=== PATIENT | male | born 1970 | race Caucasian/White ===

== ENCOUNTER 2020-11-22 12:13 | Emergency (ER) | payer MEDICAID, SELFPAY ==
[~2020-11-22] VITALS: Ht 177.8 cm; Wt 102.1 kg
[2020-11-22 12:21] VITALS: BP_SYST 157
--- NOTE | 2020-11-22 12:31 | NUR ---
Pt came to ER stating he has shortness of breath since last night. Pt currently appears calm and comfortable, resting in room, no distress noted
--- NOTE | 2020-11-22 12:31 | NUR ---
Patient to ER bed 5 to gown for evaluation. Side rails up.
--- NOTE | 2020-11-22 12:32 | NUR ---
ER at bedside examining patient.
[2020-11-22 12:50] LABS: CALCIUM 8.5 mg/dL (8.4-11.0); POTASSIUM 3.8 mmol/L (3.5-5.1)
[2020-11-22 12:51] LABS: CREATININE 0.98 mg/dL (0.55-1.30)
[2020-11-22 12:52] LABS: BASOPHILS % (AUTO) 0.8 % (0.0-2.0); EOSINOPHILS # (AUTO) 0.4 K/uL (0.0-0.4); EOSINOPHILS % (AUTO) 7.6 % (0.0-4.0); HEMATOCRIT 45.7 % (36-54); HEMOGLOBIN 15.8 g/dL (14.0-18.0); LYMPHOCYTES # (AUTO) 2.4 K/uL (1.0-5.5); LYMPHOCYTES % (AUTO) 45.8 % (20.5-51.5); MEAN CORPUSCULAR HEMOGLOBIN 34 pg (27-31); MEAN CORPUSCULAR HGB CONC 35 % (32-36); MEAN CORPUSCULAR VOLUME 98 fL (79.0-98.0); MONOCYTES # (AUTO) 0.5 K/uL (0.0-1.0); MONOCYTES % (AUTO) 10.3 % (1.7-9.3); NEUTROPHILS # (AUTO) 1.9 K/uL (1.8-7.7); NEUTROPHILS % (AUTO) 35.5 % (40.0-70.0); PLATELET COUNT (AUTO) 204 K/uL (130-430); RED BLOOD CELL COUNT(AUTO) 4.69 MIL/uL (4.2-6.2); RED CELL DISTRIBUTION WIDTH 13.1 % (9.0-15.0); WHITE BLOOD COUNT (AUTO) 5.2 K/uL (4.8-10.8)
[2020-11-22 12:56] LABS: ALBUMIN 3.9 g/dL (3.4-4.8); TOTAL BILIRUBIN 0.7 mg/dL (0.0-1.0)
[2020-11-22] MEDS ORDERED: PSEU30TA36 PO (13:07)
[2020-11-22] MEDS ORDERED: IBUP-1971 PO (13:07)
[2020-11-22 13:08] LABS: C-REACTIVE PROTEIN QUANT 0.6 mg/dL (0-0.5)
[2020-11-22 13:27] VITALS: BP_SYST 157
--- NOTE | 2020-11-22 13:28 | NUR ---
Patient given written and verbal discharge instructions and verbalizes understanding. ER MD discussed with patient the results and treatment provided. Patient in stable condition. ID arm band removed. Rx of Motrin and Sudafed given. Patient educated on pain management and to follow up with PMD. Pain Scale 0/10. Opportunity for questions provided and answered. Medication side effect fact sheet provided.
== END 2020-11-22 13:28 | disposition home or self-care (01) ==
LOC: SED 12:13
DX: J40 Bronchitis, not specified as acute or chronic (principal); Z79.899 Other long term (current) drug therapy; Z20.822 Contact with and (suspected) exposure to COVID-19
CPT/HCPCS: 36415; 71045; 80053; 83605; 83880; 84484; 85025; 86140; 99284

== ENCOUNTER 2021-10-10 21:06 | Emergency (ER) | payer MEDICAID ==
[~2021-10-10] VITALS: Ht 172.7 cm; Wt 95.3 kg
[~2021-10-10 21:06] MED LIST: IBUP-1971 PO; PSEU30TA36 PO
[2021-10-10 21:42] VITALS: BP_SYST 128
== END 2021-10-10 21:47 | disposition left against medical advice (07) ==
LOC: SED 21:06
DX: R06.02 Shortness of breath (principal); Z53.21 Procedure and treatment not carried out due to patient leaving prior to being seen by health care provider

== ENCOUNTER 2022-06-28 12:15 | Emergency (ER) | payer MEDICAID ==
[~2022-06-28] VITALS: Ht 177.8 cm; Wt 108.9 kg
[2022-06-28 12:23] VITALS: BP_SYST 136
--- NOTE | 2022-06-28 12:25 | NUR ---
Patient triaged and placed in waiting room. VSS and patient appears in no acute distress at this time. Accompanied by SELF, awaiting available bed, and MD notified of need for MSE.
--- NOTE | 2022-06-28 12:50 | NUR ---
ER DR. MATAMOROS EXAMINING PT IN TRIAGE
[2022-06-28 13:08] LABS: BASOPHILS # (AUTO) 0.1 K/uL (0.0-0.2); EOSINOPHILS # (AUTO) 0.4 K/uL (0.0-0.4); EOSINOPHILS % (AUTO) 5.8 % (0.0-4.0); HEMOGLOBIN 14.9 g/dL (14.0-18.0); LYMPHOCYTES # (AUTO) 2.1 K/uL (1.0-5.5); LYMPHOCYTES % (AUTO) 31.8 % (20.5-51.5); MEAN CORPUSCULAR HEMOGLOBIN 34 pg (27-31); MEAN CORPUSCULAR HGB CONC 35 % (32-36); MEAN CORPUSCULAR VOLUME 96 fL (79.0-98.0); MONOCYTES # (AUTO) 0.6 K/uL (0.0-1.0); MONOCYTES % (AUTO) 9.4 % (1.7-9.3); NEUTROPHILS # (AUTO) 3.4 K/uL (1.8-7.7); PLATELET COUNT (AUTO) 245 K/uL (130-430); RED BLOOD CELL COUNT(AUTO) 4.38 MIL/uL (4.2-6.2); RED CELL DISTRIBUTION WIDTH 12.8 % (9.0-15.0); WHITE BLOOD COUNT (AUTO) 6.5 K/uL (4.8-10.8)
[2022-06-28 13:35] LABS: ANION GAP 9 (5-15); CALCIUM 8.6 mg/dL (8.4-11.0); CHLORIDE 104 mmol/L (98-107); CREATININE 0.99 mg/dL (0.55-1.30); GLUCOSE 126 mg/dL (70-99); UREA NITROGEN, BLOOD 13 mg/dL (8-21)
[2022-06-28 13:39] LABS: ALANINE AMINOTRANSFERASE 49 U/L (12-78); ALBUMIN 3.8 g/dL (3.4-4.8); ASPARTATE AMINOTRANSFERASE 20 U/L (10-37); TOTAL BILIRUBIN 0.4 mg/dL (0.0-1.0)
[2022-06-28 13:41] LABS: C-REACTIVE PROTEIN QUANT < 0.2 mg/dL (0-0.5); GFR AFRICAN AMERICAN 103 mL/min (>90)
--- NOTE | 2022-06-28 14:00 | NUR ---
ER DR. RODGERS EXAMINING PT IN TRIAGE
[2022-06-28] MEDS ORDERED: CEPH-548 PO (15:39)
[2022-06-28 15:45] VITALS: BP_SYST 136
--- NOTE | 2022-06-28 15:49 | NUR ---
Patient given written and verbal discharge instructions and verbalizes understanding. ER MD discussed with patient the results and treatment provided. Patient in stable condition. ID arm band removed. Rx of KEFLEX given. Patient educated on pain management and to follow up with PMD. Pain Scale 0/10. Opportunity for questions provided and answered. Medication side effect fact sheet provided.
== END 2022-06-28 15:45 | disposition home or self-care (01) ==
LOC: SED 12:15
DX: L03.116 Cellulitis of left lower limb (principal); M79.662 Pain in left lower leg; Z79.899 Other long term (current) drug therapy
CPT/HCPCS: 36415; 80053; 82550; 83880; 85025; 86140; 93971; 99284

== ENCOUNTER 2022-08-04 21:39 | Emergency (ER) | payer MEDICAID ==
[~2022-08-04] VITALS: Ht 177.8 cm; Wt 99.8 kg
[~2022-08-04 21:39] MED LIST changes: +CEPH-548 PO
[2022-08-04 21:54] VITALS: BP_SYST 125
--- NOTE | 2022-08-04 21:59 | NUR ---
Patient triaged and placed in waiting room. VSS and patient appears in no acute distress at this time. Accompanied by SELF, awaiting available bed, and MD notified of need for MSE.
--- NOTE | 2022-08-04 23:28 | NUR ---
Patient is placed in triage room for evaluation.
--- NOTE | 2022-08-04 23:30 | NUR ---
DR. CARDOSO WITH PATIENT FOR [facility] [place].
--- NOTE | 2022-08-05 00:25 | NUR ---
ATTEMPTED TO D/C PATIENT. PT NOT FOUND IN WAITING ROOM.
--- NOTE | 2022-08-05 01:00 | NUR ---
Patient given written and verbal discharge instructions and verbalizes understanding. ER MD discussed with patient the results and treatment provided. Patient in stable condition. ID arm band removed. Patient educated on pain management and to follow up with PMD. Pain Scale 0/10. Opportunity for questions provided and answered. Medication side effect fact sheet provided.
== END 2022-08-05 00:40 | disposition home or self-care (01) ==
LOC: SED 21:39
DX: L03.116 Cellulitis of left lower limb (principal); L03.115 Cellulitis of right lower limb; R22.43 Localized swelling, mass and lump, lower limb, bilateral; F12.90 Cannabis use, unspecified, uncomplicated; Z79.899 Other long term (current) drug therapy
CPT/HCPCS: 93970; 99284